=== PATIENT | female | born 1960 | race Caucasian/White ===

== ENCOUNTER 2018-10-01 07:06 | Day surgery (SDC) | payer BC ==
[~2018-10-01] VITALS: Ht 157.5 cm; Wt 127.4 kg
[2018-10-01] VITALS (16 sets, daily range): BP systolic 107–158; BP diastolic 64–103; PULSE 92–109; RESP 17–24; Ht 157.5 cm; Wt 127.4 kg
[2018-10-01] MEDS ORDERED: LORA10TA3 PO (08:10)
[2018-10-01] MEDS ORDERED: GABA300C16 PO (08:10)
[2018-10-01] MEDS ORDERED: METF100010 PO (08:12)
[2018-10-01] MEDS ORDERED: ERGO500013 PO (08:12)
[2018-10-01] MEDS ORDERED: MONT10TA24 PO (08:20)
[2018-10-01] MEDS ORDERED: AMLO5TAB4 PO (08:20)
[2018-10-01] MEDS ORDERED: DICL75TA2 PO (08:20)
[2018-10-01] MEDS ORDERED: DICY10CA40 PO (08:21)
[2018-10-01] MEDS ORDERED: RANI300T PO (08:22)
[2018-10-01] MEDS ORDERED: METO10TA92 PO (08:22)
[2018-10-01] MEDS ORDERED: BACL10TA PO (08:23)
[2018-10-01] MEDS ORDERED: ISOS120T15 PO (08:23)
[2018-10-01] MEDS ORDERED: SIMV20TA PO (08:23)
[2018-10-01] MEDS ORDERED: TRAM50TA PO (08:24)
[2018-10-01] MEDS ORDERED: ASPI81TA52 PO (08:25)
[2018-10-01] MEDS ORDERED: LOSA1TAB28 PO (08:25)
[2018-10-01] MEDS ORDERED: GLIM4TAB PO (08:25)
[2018-10-01] MEDS ORDERED: NITR0.4T39 SL (08:26)
[2018-10-01] MEDS ORDERED: METO-319 PO (08:26)
[2018-10-01] MEDS ORDERED: MOME13HF INHALATION (08:26)
[2018-10-01] MEDS ORDERED: ALBU18HF INHALATION (08:27)
[2018-10-01] MEDS ORDERED: FLUT12HF4 IH (08:32)
[2018-10-01] MEDS ORDERED: SOD CHLORIDE 0.45% 1,000 ML IV SCH (09:00)
[2018-10-01] MEDS ORDERED: LIDOCAINE 1% (MDV) 20 ML INJ ONE (09:17)
[2018-10-01] MEDS ORDERED: IODIXANOL LOCM 100 ML BTL ONE (09:17)
[2018-10-01] MEDS ORDERED: FENTAnyl 50 MCG/ML VIAL ONE (09:17)
[2018-10-01] MEDS ORDERED: DIPHENHYDRAMINE 50 MG INJ ONE (09:17)
[2018-10-01] MEDS ORDERED: HEPARIN 1000 UNITS/ML 10 ML INJ ONE (09:17)
[2018-10-01] MEDS ORDERED: VERAPAMIL 5 MG INJ ONE (09:17)
[2018-10-01] MEDS ORDERED: MIDAZOLAM 1 MG/ML 2 ML INJ ONE (09:17)
[2018-10-01] MEDS ORDERED: NITROGLYCERIN (IC) 100 MCG/ML INJ ONE (09:18)
[2018-10-01] MEDS ORDERED: METHYLPREDNISOLONE 125 MG INJ ONE (09:18)
[2018-10-01] MEDS ORDERED: DIPHENHYDRAMINE 50 MG INJ IV SCH (09:30)
[2018-10-01] MEDS ORDERED: METHYLPREDNISOLONE 125 MG INJ IV SCH (09:30)
[2018-10-01] MEDS ORDERED: FAMOTIDINE 20 MG INJ IV SCH (09:30)
[2018-10-01] MEDS ORDERED: SOD CHLORIDE 0.9% 1,000 ML IV SCH (10:08)
--- NOTE | 2018-10-01 10:08 | SIPON ---
Date/Time of Note Date/Time of Note DATE: 10/01/18 TIME: 10:06 Operative Report Preoperative Diagnosis 1.chest pain 2.abnl mpi Postoperative Diagnosis 1.non-obstructive cad Operation/Procedure Performed 1.[facility] Surgeon see signature line assistant fitness manager 1.Bennie Anesthesia: moderate sedation Estimated blood loss: minimal Transfusion Required none Specimen none Grafts/Implants none Complications none ANTHONY NARANJO Oct 01, 2018 10:08
[2018-10-01] MEDS ORDERED: AL HYDROX/MG HYDROX/SIMETH 30 ML CUP PO PRN (10:30)
[2018-10-01] MEDS ORDERED: ONDANSETRON 4 MG INJ IV PRN (10:30)
[2018-10-01] MEDS ORDERED: morphine 2 MG INJ IV PRN (10:30)
[2018-10-01] MEDS ORDERED: ACETAMINOPHEN 325 MG TAB PO PRN (10:30)
--- NOTE | 2018-10-01 16:03 | RADRPT ---
Vent Rate: 109 bpm RR Interval: 0 msec OH Interval: 180 msec QRS Duration: 84 msec QT Interval: 340 msec QTC Interval: 457 msec P-R-T Corinne: 63 - 32 - 65 degrees Sinus tachycardia Otherwise normal ECG Electronically Signed By: Woodrow Ryan
--- NOTE | 2018-10-01 19:04 | CARRPT ---
DATE OF PROCEDURE: 10/01/2018 TYPE OF PROCEDURE: 1. Left heart catheterization. 2. Coronary angiography. 3. Measured left end-diastolic pressure. ATTENDING PHYSICIAN: Anthony Ryan MD REFERRING PHYSICIAN: Micki Ramirez MD INDICATION: Chest pain refractory to medical therapy. TYPE OF ANESTHESIA: Conscious and local. BRIEF HISTORY: Ms. Mohamud is a 58-year-old female with history of hypertension, dyslipidemia, diabet es mellitus, with complains of substernal chest pain. The patient has a cardiac stress test showing anterior and inferior ischemia. The patient was to go for a CT of the head but has a CONTRAST ALLERG Y. She is now brought to cardiac catheterization lab to assess for possibility of significant obstru ctive coronary artery disease contributing symptoms of chest pain and positive stress test findings. DESCRIPTION OF PROCEDURE: After informed consent was obtained, he was brought to the [facility] cardiac catheterization lab where her right and left groins were prepped in the usual s terile fashion. 2% lidocaine was infiltrated into right groin in order to achieve adequate anesthesi a. Using modified Seldinger technique, the ____ artery was cannulated and a 6-Romanian arterial sheath was placed. A 6-Romanian JL3.5 catheter was used to cannulate the left main coronary ostium. Using c ontrast injection multiple views of the left coronary system were obtained. A JL3.5 guidewire and a JR4 were used to cannulate the right coronary arterial ostium. Contrast injection was used for right coronary system. JR4 was then used to additionally cross the LV. LVEDP was measured and pullback a cross the aortic valve to assess for significant gradient, which there was not, and removed. Subsequ ently, at this time, the patient's catheter was removed. The patient's sheath was removed. TR Band was applied completing the procedure. There were no noted complications. FINDINGS: Coronary angiography: Left main is short 4.5 mm, no significant stenosis. Circumflex pro ximally is a 3.5 mm vessel, proximally has a 20% stenosis. The remainder of the circumflex is free o f any focal stenosis. There is a mid-branching obtuse marginal, 3 mm, no significant focal stenosis . The LAD proximally is a 3.5 mm vessel and 20% stenosis in its mid-portion made. The LAD is free f rom focal stenosis. There is a mid-branching diagonal, 2 mm, and a distal branching diagonal sub 2 m m vessel with no significant stenosis. The patient's right coronary artery proximally is a 3.5 mm ve ssel and significant focal stenosis entirety. It is a dominant vessel and gives off a 2 mm PDA and a 2.5 mm posterolateral branch, the posterolateral branch having mild luminal irregularities of 10% to 20%. Measurement of LVEDP of 8, no significant aortic stenosis by gradient. TOTAL FLUOROSCOPY TIME: 1.8 minutes. TOTAL CONTRAST: 35 mL. IMPRESSION: 1. Very mild nonobstructive coronary artery disease. 2. Normal left heart filling pressures. 3. No significant aortic stenosis by gradient. RECOMMENDATIONS: In light of procedure findings at this time I would: 1. Maximize medical management. 2. Aggressive risk factor reduction. 3. The patient will be readmitted to the CV surgeon for post-cath observation and continued manageme nt of symptoms with ____. Dictated By: ANTHONY ANDRADE/TAMIA Conf#: [id number] DID#: [id number] CC: MICKI RAMIREZ MD;*EndCC*
== END 2018-10-01 14:15 | disposition home or self-care (01) ==
LOC: SDS 07:06
PROVIDERS: ATTEND Internal Medicine
DX: I25.10 Atherosclerotic heart disease of native coronary artery without angina pectoris (principal); I10 Essential (primary) hypertension; E11.9 Type 2 diabetes mellitus without complications; J45.909 Unspecified asthma, uncomplicated
CPT/HCPCS: 71045; 80048; 80061; 82962; 85025; 85610; 85730; 93005; 93458; C1887; J1200; J1644; J2250; J2930; J3010; Q9967; Z7610